=== PATIENT | female | born 1965 | race American Indian/Alaskan Native ===

== ENCOUNTER 2018-05-03 10:00 | Day surgery (SDC) | payer MEDICAID ==
[~2018-05-03 10:00] MED LIST: NACL 0.9% 1000 ML 1,000 ML IV SCH
[2018-05-03] MEDS ORDERED: XYLOCAINE MPF 2% ONE (10:51)
[2018-05-03] MEDS ORDERED: HumuLIN R ONE (12:02)
[2018-05-03] MEDS ORDERED: HURRICAINE ONE 20% TOPICAL SPRAY MM ×2 (14:55→20:32)
[2018-05-03] MEDS ORDERED: DIPRIVAN 10 MG/ML IV ONE (14:58)
--- NOTE | 2018-05-03 15:07 | Anesthesia Consultation ---
Anesthesia Consult and Med Hx Date of service: 05/03/18 - Airway Anesthetic Teeth Evaluation: Poor (missing center bottom ) ROM Head & Neck: Adequate Mental/Hyoid Distance: Adequate Mallampati Class: Class III Intubation Access Assessment: Possibly Difficult - Pulmonary Exam CTA: Yes - Cardiac Exam Cardiac Exam: RRR - Pre-Operative Health Status ASA Pre-Surgery Classification: ASA3 Proposed Anesthetic Plan: MAC - Pulmonary Hx Asthma: Yes Hx Sleep Apnea: Yes - Cardiovascular System Hx Hypertension: Yes - Gastrointestinal Hx Gastroesophageal Reflux Disease: Yes - Endocrine Hx Insulin Dependent Diabetes: Yes - Other Systems Hx Obesity: Yes
--- NOTE | 2018-05-03 15:08 | Anesthesia Day of Surgery ---
Anesthesia Day of Surgery - Day of Surgery Patient Examined: Yes Patient H&P Reviewed: Yes Patient is NPO: Yes
--- NOTE | 2018-05-03 15:21 | Discharge Summary ---
Providers - Providers Attending physician: CECILIO VASQUEZ Primary care physician: SOUMYA CRAFT Hospitalization Procedures: egd with biopsy Hospital course: 52 y.o. F presented to the hospital for EGD. She had gastritis and a possible mass near/at her pylorus. Biopsy of the pylorus and the antrum were conducted. She tolerated the procedure well. She was discharged home the first day. Disposition: - TO HOME OR SELFCARE Core Measure Documentation - Palliative Care Palliative Care/ Comfort Measures: Not Applicable - Core Measures Any of the following diagnoses?: none Exam - Physical Exam Narrative exam: no changes from previous - Constitutional Vitals: Temp Pulse Resp BP Pulse Ox 97.3 F L 72 20 190/117 98 05/03/18 12:08 05/03/18 12:08 05/03/18 12:08 05/03/18 12:08 05/03/18 12:08 Plan Activity: no restrictions Additional Instructions: follow up for surgery Follow up with: SOUMYA CRAFT [Primary Care Provider] - 7 Days
--- NOTE | 2018-05-03 15:21 | Operative Report ---
Operative Report Operative Report: OPERATIVE REPORT - EGD DATE 05/03/18 SURGERY: Upper endoscopy. SURGEON: Dr. Marks THREAD LASTER: Rosemarie Sanders D.O PRE OP DX: Dyspepsia POST OP DX:Gastritis 2. hiatal hernia 3. possible mass at pylorus TYPE OF ANESTHESIA: MAC. ESTIMATED BLOOD LOSS: None. COMPLICATIONS: None. SPECIMENS REMOVED: None. FINDINGS: 1. Small hiatal hernia. 2. Otherwise, normal esophagus 3. Gastritis of stomach 4. enlarged pylorus possible mass at pyloric sphincter. 5. Antral Ulcers INDICATIONS:INDICATION FOR PROCEDURE: Patient is a 52-year-old female with a long history of morbid obesity. She is planned to have a weight loss procedure and is here for preoperative planning EGD. Patient admits to [facility] chronic use of NSAIDS. PROCEDURE DETAILS: After consent was reviewed, patient was taken back to the operating room where patient was placed in the left lateral decubitus position and a bite block was placed in the mouth. After a time-out was called, MAC anesthesia was initiated. I then passed the endoscope into her oropharynx, into her esophagus, visualized the entire esophagus, which was all within normal limits. I then visualized the stomach and the first portion of the duodenum. Gastritis was noted in her stomach. A biopsy was taken of the antrum. The pylorus look enlarged with inflammation and possible mass. A biopsy was taken at this site as well. Black areas at the antrum were noted which were thought to be healing ulcers. I intubated the pylorus and viewed the first portion fo the duodenum which was within normal limits that I could visualize. I then retroflexed the scope in the stomach and visualized the hiatus and I could see a moderate hiatal hernia. I then desufflated the stomach and removed the endoscope. Patient tolerated procedure well and was transferred to recovery room in good and stable condition. Once the patient was awake discussed the finding. I encouraged her to stop taking NSAIDs as they are the likely cause of the changes noted above.
[2018-05-03 15:51] VITALS: BP 120/99
== END 2018-05-03 10:01 | disposition home or self-care (01) ==
LOC: GIO 10:00
PROVIDERS: ATTEND Specialist
DX: K25.9 Gastric ulcer, unspecified as acute or chronic, without hemorrhage or perforation (principal); K29.50 Unspecified chronic gastritis without bleeding; K44.9 Diaphragmatic hernia without obstruction or gangrene; K21.9 Gastro-esophageal reflux disease without esophagitis; I10 Essential (primary) hypertension; G47.30 Sleep apnea, unspecified; J45.909 Unspecified asthma, uncomplicated; E11.9 Type 2 diabetes mellitus without complications; E66.01 Morbid (severe) obesity due to excess calories; Z68.44 Body mass index [BMI] 60.0-69.9, adult
CPT/HCPCS: 43239; 82962; 88305; 88342; J2704; J7030; J1815